=== PATIENT | female | born 1990 | race Two or more races ===

== ENCOUNTER 2024-06-23 15:27 | Emergency (ER) | payer MEDICAID, OTHER ==
[~2024-06-23] VITALS: Ht 182.9 cm; Wt 117.1 kg
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
--- NOTE | 2024-06-23 17:13 | DVH ---
CLINICAL INDICATION: bite TECHNIQUE: 3 radiographic views of the right hand were obtained. Comparison: None FINDINGS/IMPRESSION: Cortical irregularity of the proximal aspect of the proximal phalanx of the right thumb metacarpal ph alangeal joint. Is of doubtful clinical concern since the 3rd and 4th fingers or sites of interest. The visualized joint space is well maintained. The alignment is anatomical. There is no radiopaque foreign body.
[2024-06-23] MEDS ORDERED: IBUP1TAB5 PO (17:20)
[2024-06-23] MEDS ORDERED: AUG875T PO (17:20)
[2024-06-23 17:38] VITALS: BP 120/69; PULSE 69; RESP 18; TEMP 98.3; O2SAT 97
== END 2024-06-23 17:41 | disposition home or self-care (01) ==
LOC: ER 15:34 → EDBD 15:34 → ER 17:39
DX: S60.414A Abrasion of right ring finger, initial encounter (principal); I10 Essential (primary) hypertension; Z90.49 Acquired absence of other specified parts of digestive tract; Y04.1XXA Assault by human bite, initial encounter; Y93.89 Activity, other specified; Y92.89 Other specified places as the place of occurrence of the external cause; Y99.8 Other external cause status
CPT/HCPCS: 29130; 73130